=== PATIENT | female | born 1970 | race American Indian/Alaskan Native ===

== ENCOUNTER 2019-01-31 08:45 | Outpatient (CLI) | payer MEDICARE ==
--- NOTE | 2019-01-31 15:06 | Mammography Report ---
BILATERAL DIGITAL SCREENING MAMMOGRAMS WITH CAD INDICATION: Screening. COMPARISONS: None available. 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 In addition to standard review, the examination was analyzed for possible abnormalities using a computer-assisted detection device (iCAD). The breast tissue is heterogeneously dense, which may obscure small masses. A left upper asymmetry on the MLO view requires comparison with the prior mammogram or additional jennifer ging. No architectural distortion or suspicious calcifications. The right breast is negative. IMPRESSION: Comparison with the previous mammogram is required. We will attempt to obtain a prior mammogram for c omparison. If we do not obtain a prior mammogram within 30 days, a revised report will be issued venancio mmending a recall for additional imaging. Please be advised that the patient should not schedule an a ppointment for return until adequate time (at least 2 weeks) has passed breast to obtain the prior ma mmogram. BI-RADS CATEGORY 0: INCOMPLETE - NEED ADDITIONAL IMAGING EVALUATION AND/OR PRIOR MAMMOGRAMS FOR COMP ARISON Information is entered into a reminder system for a target due date for the next mammogram. The resul ts and recommendations were sent to the patient by mail. Signer Name: Jonas Nielsne MD Signed: 01/31/2019 3:01 PM Workstation Name: [id number]
== END 2019-01-31 08:46 | disposition home or self-care (01) ==
LOC: SPVWC 08:45
PROVIDERS: ATTEND Internal Medicine
DX: Z12.31 Encounter for screening mammogram for malignant neoplasm of breast (principal)
CPT/HCPCS: 77067

== ENCOUNTER 2019-02-04 15:20 | Outpatient (CLI) | payer MEDICARE ==
--- NOTE | 2019-02-05 07:53 | Ultrasound Report ---
ULTRASOUND RENAL INDICATION / CLINICAL INFORMATION: RENAL COLIC. COMPARISON: None available. FINDINGS: RIGHT KIDNEY: Length = 9.1 cm. [normal > 9 cm] - Parenchymal Thickness = 2.1 cm. [normal > 1.5 cm] - Echogenicity: Normal. - Hydronephrosis: None. - Cyst or mass: No significant abnormality. - Stones: None seen. LEFT KIDNEY: Length = 9.4 cm. [normal > 9 cm] - Parenchymal Thickness = 1.7 cm. [normal > 1.5 cm] - Echogenicity: Normal. - Hydronephrosis: None. - Cyst or mass: No significant abnormality. - Stones: None seen. URINARY BLADDER: No significant abnormality. Bladder volume measures 368 cc on the prevoid images. Th ere is no significant post void residual on postvoid imaging. FREE FLUID: None. ADDITIONAL FINDINGS: None. IMPRESSION: Unremarkable renal ultrasound. Signer Name: Joseph Cao Jr, MD Signed: 02/05/2019 7:49 AM Workstation Name: [id number]
== END 2019-02-04 15:21 | disposition home or self-care (01) ==
LOC: SPVWC 15:20
PROVIDERS: ATTEND Urology
DX: N28.1 Cyst of kidney, acquired (principal); R31.29 Other microscopic hematuria; N23 Unspecified renal colic
CPT/HCPCS: 76770

== ENCOUNTER 2019-02-05 08:55 | Outpatient (CLI) | payer MEDICARE ==
--- NOTE | 2019-02-05 11:26 | Magnetic Resonance Report ---
MRI THORACIC SPINE WITHOUT CONTRAST INDICATION / CLINICAL INFORMATION: THORACIC RADICULITIS. TECHNIQUE: Multisequence, multiplanar images of the thoracic spine were obtained. COMPARISON: None available. FINDINGS: ALIGNMENT: No significant malalignment with no significant scoliosis. VERTEBRAE:Normal marrow signal and vertebral body height for age. VISUALIZED SPINAL CORD: No significant abnormality. The conus terminates at the level of L1. INTERVERTEBRAL DISCS: No significant abnormality. No central canal stenosis or neural foraminal narro wing is identified throughout the thoracic region. DEGENERATIVE FINDINGS: No significant degenerative findings. PARASPINAL SOFT TISSUES: No significant abnormality. ADDITIONAL FINDINGS: None. IMPRESSION: 1. No focal disc herniation, spinal canal stenosis or nerve root compression. Unremarkable MRI of th e thoracic spine. Signer Name: Joseph Cao Jr, MD Signed: 02/05/2019 11:21 AM Workstation Name: [id number]
== END 2019-02-05 08:56 | disposition home or self-care (01) ==
LOC: SPVIMAG 08:55
PROVIDERS: ATTEND Internal Medicine
DX: M54.14 Radiculopathy, thoracic region (principal)
CPT/HCPCS: 72146

== ENCOUNTER 2019-04-01 08:26 | Outpatient (CLI) | payer MEDICARE ==
--- NOTE | 2019-04-01 09:16 | Mammography Report ---
DIGITAL LEFT DIAGNOSTIC MAMMOGRAM WITH CAD, WITHOUT TOMOSYNTHESIS 04/01/2019 INDICATION: ABN MAMMO TECHNIQUE: Digital left mammographic imaging was performed. This examination was interpreted with the benefit of Computer-aided Detection analysis. COMPARISON: 01/31/2019 Breast Density: The breast is heterogeneously dense, which may obscure small masses. FINDINGS: Lateral and spot compression MLO views without and with magnification were performed. 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 IMPRESSION: No mammographic evidence of malignancy. Follow up recommendation: Routine BI-RADS Category 1: Negative. A "normal" or negative report should not discourage follow up or biopsy of a clinically significant f inding. A written summary of these findings will be mailed to the patient. The patient will be entered into a mammography reporting system which will generate a reminder letter for the patient's next appointmen t at the appropriate interval. According to the [employer], yearly mammograms are recommended starting at age 40 and continuing as long as a woman is in good health. Breast MRI is recommended for women with an sara roximately 20-25% or greater lifetime risk of breast cancer, including women with a strong family his tory of breast or ovarian cancer and women who have been treated for Hodgkin's disease. Signer Name: Jonas Nielsen MD Signed: 04/01/2019 9:12 AM Workstation Name: [id number]
== END 2019-04-01 08:27 | disposition home or self-care (01) ==
LOC: MAMMO 08:26
PROVIDERS: ATTEND Internal Medicine
DX: R92.8 Other abnormal and inconclusive findings on diagnostic imaging of breast (principal)